=== PATIENT | female | born 1990 | race Asian ===

== ENCOUNTER 2025-04-18 19:50 | Emergency (ER) | payer OTHER ==
[~2025-04-18] VITALS: Ht 167.6 cm; Wt 47.1 kg
[~2025-04-18 19:50] MED LIST: ONDANSETRON ODT8 MG PO; PRENATAL VITAM1 EACH PO
[2025-04-18] MEDS ORDERED: ondansetron HCL 4 MG/2 ML VIAL IV ONE (20:15)
[2025-04-18] MEDS ORDERED: MORPHINE SULFATE 4 MG/ML VIAL IV ONE (20:15)
[2025-04-18] MEDS ORDERED: LACTATED RINGER'S 1,000 ML IV ONE (20:15)
[2025-04-18 20:29] LABS: BASOPHILS 0.8 % (0.1-1.2); EOSINOPHILS 3.6 % (0.7-5.8); HEMATOCRIT 33.9 % (34.1-44.9); HEMOGLOBIN 11.3 g/dL (11.2-15.7); LYMPHOCYTES 13.8 % (19.3-51.7); MCHC 33.3 g/dL (32.2-35.5); MCV 86.9 fL (79.4-94.8); MONOCYTES 6.7 % (4.7-12.5); NEUTROPHILS 74.8 % (34.0-71.1); PLATELET COUNT 147 K/uL (182-369)
[2025-04-18 21:10] LABS: ALBUMIN 3.4 g/dL (3.4-5.0); ALBUMIN/GLOBULIN RATIO 0.92 (1.1-2.4); ANION GAP 11.6 (7-21); BILIRUBIN, TOTAL 0.3 mg/dL (0.2-1.0); BUN/CREATININE RATIO 19.35 (6.0-28.6); CALCIUM 9.2 mg/dL (8.5-10.1); CREATININE, SERUM 0.62 mg/dL (0.55-1.02); POTASSIUM 3.6 mmol/L (3.5-5.1); PROTEIN, TOTAL 7.1 g/dL (6.4-8.2)
[2025-04-18 21:24] LABS: ABO O; ANTIBODY SCREEN NEGATIVE; RH POSITIVE
[2025-04-18] MEDS ORDERED: ONDANSETRON 4 MG HOME.PACK SL ONE (22:00)
[2025-04-18] MEDS ORDERED: HYDROCODON-ACE1 EA10 PO (22:00)
[2025-04-18] MEDS ORDERED: IBU800 MG PO (22:00)
[2025-04-18] MEDS ORDERED: OXYTOCIN 10 UNITS/ML VIAL IM ONE (22:00)
[2025-04-18] MEDS ORDERED: HYDROCODONE BIT/ACETAMINOPHEN 5/325 MG 1 TAB HOME.PACK PO ONE (22:00)
[2025-04-18] MEDS ORDERED: ONDANSETRON ODT8 MG PO (22:00)
[2025-04-18 22:16] VITALS: BP 111/76
== END 2025-04-18 23:00 | disposition home or self-care (01) ==
LOC: ED 19:50
PROVIDERS: Family Medicine
DX: O03.9 Complete or unspecified spontaneous abortion without complication (principal)
CPT/HCPCS: 36415; 76801; 80053; 84702; 85025; 86850; 86900; 86901; 96374; 96375; 99284-25; A9270; J2270; J2405; J2590; J7121